=== PATIENT | female | born 1985 | race Caucasian/White ===

== ENCOUNTER 2019-08-08 18:46 | Emergency (ER) | payer OTHER ==
[~2019-08-08] VITALS: Ht 175.3 cm; Wt 61.2 kg
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
[2019-08-08 19:32] VITALS: BP 113/79
[2019-08-08] MEDS ORDERED: Methocarbamol 500mg tab ORAL ONE (20:45)
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
[2019-08-08] MEDS ORDERED: IBU800 MG PO (20:46)
[2019-08-08] MEDS ORDERED: ROBAXIN-500MG ORAL (20:46)
[2019-08-08] MEDS ORDERED: LIDODERM700 M1 TOPIC (20:46)
--- NOTE | 2019-08-08 20:55 | Diagnostic Imaging Report ---
Indication: Head trauma. Headache Technique: Contiguous 5 mm thick transaxial imaging of the head obtained in a Siemens Sensation [address] scanner. Soft tissue and bone windows generated. Automatic Exposure Control was utilized. Total Dose length Product (DLP): 1269.[address] Dose Index Volume (CTDIvol): 62.7 mGy Comparison: none Findings: The size and configuration of the cortical sulci, basal cisterns, and ventricles are within normal limits for age. There is no mass effect, midline shift, or edema identified. There is no evidence of acute hemorrhage or abnormal intra-axial or extra-axial fluid collections. The bones and soft tissues are unremarkable. There is mucosal thickening and fluid within the maxillary sinuses. Impression: No mass effect, edema or acute bleed. Sinusitis [facility] has communicated the preliminary results to the Emergency Department. Their findings are largely concordant with this report. The CT scanner at [facility] is accredited by the [employer] and the scans are performed using dose optimization techniques as appropriate to a performed exam including Automatic Exposure control.
--- NOTE | 2019-08-08 20:56 | Diagnostic Imaging Report ---
Indication: Cervical trauma/pain. Technique: Continuous helical imaging of the cervical spine was obtained transaxially from the skull base to the upper thoracic spine. 2-D coronal and sagittal reformatted images were obtained. Automatic Exposure Control was utilized. Total Dose length Product (DLP): 175.[address] Dose Index Volume (CTDIvol): 4.8 mGy Comparison: None Findings: There is no evidence of an acute fracture or malalignment. There is slight reversal of cervical lordosis which may be due to muscle spasm. Atlantoaxial alignment appears normal. Height and configuration of the vertebral bodies and intervertebral discs are within normal limits. Uncovertebral joints and facets are unremarkable. There is no soft tissue swelling. Impression: Negative cervical spine CT. No evidence of acute injury. [facility] has communicated the preliminary results to the Emergency Department. Their findings are largely concordant with this report. The CT scanner at [facility] is accredited by the [employer] and the scans are performed using dose optimization techniques as appropriate to a performed exam including Automatic Exposure control.
[2019-08-08 21:15] VITALS: BP 113/79
--- NOTE | 2019-08-08 21:15 | NUR ---
ER DISCHARGE NOTE: Patient is cleared to be discharged per ERMD, pt is aox4, on room air, with stable vital signs. pt was given dc and prescription instructions, pt was able to verbalize understanding, pt id band removed without complications. pt is able to ambulate with steady gait. pt took all belongings.
--- NOTE | 2019-08-09 12:54 | Diagnostic Imaging Report ---
Indication: Right thigh Pain Findings: 2 views of the right femur were obtained. No acute fractures, malalignment, erosions or periostitis are identified. Soft tissues are unremarkable. Impression: Negative examination of the femur
== END 2019-08-08 21:15 | disposition home or self-care (01) ==
LOC: EMR 19:57
DX: S00.93XA Contusion of unspecified part of head, initial encounter (principal); S13.4XXA Sprain of ligaments of cervical spine, initial encounter; S70.11XA Contusion of right thigh, initial encounter; S80.01XA Contusion of right knee, initial encounter; V43.62XA Car passenger injured in collision with other type car in traffic accident, initial encounter; Y92.410 Unspecified street and highway as the place of occurrence of the external cause; Z88.0 Allergy status to penicillin; M41.9 Scoliosis, unspecified
CPT/HCPCS: 70450; 72125; 99284

== ENCOUNTER 2020-03-25 19:15 | Emergency (ER) | payer OTHER ==
[~2020-03-25] VITALS: Ht 175.3 cm; Wt 61.2 kg
[~2020-03-25 19:15] MED LIST: IBU800 MG PO; LIDODERM700 M1 TOPIC; ROBAXIN-500MG ORAL
[2020-03-25 19:30] VITALS: BP 102/68
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
[2020-03-25] MEDS ORDERED: Methocarbamol 750mg tab ORAL ONE (19:45)
[2020-03-25] MEDS ORDERED: Ketorolac 30mg Inj IM ONE (19:45)
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
[2020-03-25] MEDS ORDERED: LIDODERM700 M1 TOPIC (21:09)
[2020-03-25] MEDS ORDERED: ROBAXIN-500MG ORAL (21:09)
[2020-03-25] MEDS ORDERED: IBUPROFEN600 M1 ORAL (21:09)
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
[2020-03-25 21:20] VITALS: BP 105/70
--- NOTE | 2020-03-25 21:20 | NUR ---
ER DISCHARGE NOTE: Patient is cleared to be discharged per ERMD, pt is aox4, on room air, with stable vital signs. pt was given dc and prescription instructions, pt was able to verbalize understanding, pt id band removed. pt is able to ambulate with steady gait. pt took all belongings.
== END 2020-03-25 21:20 | disposition home or self-care (01) ==
LOC: EMR 20:05
DX: S16.1XXA Strain of muscle, fascia and tendon at neck level, initial encounter (principal); S29.012A Strain of muscle and tendon of back wall of thorax, initial encounter; R51 Headache; Z88.0 Allergy status to penicillin; V43.62XA Car passenger injured in collision with other type car in traffic accident, initial encounter; Y92.410 Unspecified street and highway as the place of occurrence of the external cause
CPT/HCPCS: 71250; 72125; 72128; 96372; 99284; J1885

== ENCOUNTER 2020-11-24 19:41 | Emergency (ER) | payer OTHER ==
[~2020-11-24 19:41] MED LIST changes: +IBUPROFEN600 M1 ORAL
--- NOTE | 2020-11-24 22:00 | NUR ---
ED Nurse Note: unable to triage patient, not in waiting room
== END 2020-11-24 23:00 | disposition left against medical advice (07) ==
LOC: EMR 22:15
DX: Z53.21 Procedure and treatment not carried out due to patient leaving prior to being seen by health care provider (principal)